=== PATIENT | male | born 1975 | race Two or more races ===

== ENCOUNTER 2016-07-25 06:19 | Emergency (ER) | payer OTHER ==
[~2016-07-25] VITALS: Ht 167.6 cm; Wt 97.5 kg
--- NOTE | 2016-07-25 06:33 | NUR ---
PT PRESENTED TO THE ER WITH A C/O MID TO RT SIDED CP THAT RADIATES TO THE BACK. PT STATED THAT THE PAIN WAS 5/10. PT AMBULATED TO ER #1 AND WAS CONNECTED TO THE MONITOR AND CONTINUOUS PULSE OX. RESP EVEN AND UNLABORED. DR. DEGROOT IS AT THE BEDSIDE EVALUATING THE PT.
[2016-07-25 07:04] LABS: BASOPHILS # (AUTO) 0.1 /CMM (0.0-0.2); BASOPHILS % (AUTO) 0.9 % (0.0-2.0); EOSINOPHILS # (AUTO) 0.6 /CMM (0.0-0.7); EOSINOPHILS % (AUTO) 9.7 % (0.0-6.0); HEMATOCRIT 41 % (39-51); HEMOGLOBIN 14.6 g/dL (13.5-17.5); LYMPHOCYTES # (AUTO) 3.1 /CMM (0.8-4.8); LYMPHOCYTES % (AUTO) 52.6 % (20.0-44.0); MEAN CORPUSCULAR HEMOGLOBIN 30 PG (26.0-33.0); MEAN CORPUSCULAR HGB CONC 36 g/dl (31.0-36.0); MEAN CORPUSCULAR VOLUME 85 fL (80-96); MONOCYTES # (AUTO) 0.6 /CMM (0.1-1.30); MONOCYTES % (AUTO) 9.7 % (2.0-12.0); NEUTROPHILS # (AUTO) 1.6 /CMM (1.8-8.9); NEUTROPHILS % (AUTO) 27.1 % (43.0-81.0); PLATELET COUNT (AUTO) 249 /CMM (150-450); RDW COEFFICIENT OF VARIATION 13.6 (11.5-15.0); RED BLOOD CELL COUNT(AUTO) 4.82 MIL/uL (4.5-6.0); WHITE BLOOD COUNT (AUTO) 5.9 K/uL (4.3-11.0)
--- NOTE | 2016-07-25 07:10 | NUR ---
CXR DONE AT THE BEDSIDE.
--- NOTE | 2016-07-25 07:13 | NUR ---
REPORT GIVEN TO MOJGAN MOLINA FOR ANTONETTE.
--- NOTE | 2016-07-25 07:15 | NUR ---
RECEIVED REPORT FROM JOSHUA
[2016-07-25 07:40] LABS: CALCIUM, SERUM 8.4 mg/dL (8.5-10.1); CARBON DIOXIDE 24 mmol/L (21-32); CHLORIDE 105 mmol/L (98-107); CREATININE 0.7 mg/dL (0.6-1.3); GFR 126 mL/min (>60); GLUCOSE 135 mg/dL (74-106); POTASSIUM 3.7 mmol/L (3.5-5.1); UREA NITROGEN, BLOOD 10 mg/dL (7-18)
[2016-07-25 07:49] LABS: TROPONIN I < 0.017 ng/mL (0.00-0.056)
[2016-07-25 07:50] LABS: SODIUM SERUM 142 mmol/L (136-145)
--- NOTE | 2016-07-25 08:13 | NUR ---
MD AT BEDSIDE PT CLEAR FOR DISCHARGE
[2016-07-25 08:14] VITALS: BP 147/79
--- NOTE | 2016-07-25 08:15 | NUR ---
IV removed. Catheter intact and site benign. Pressure and 4x4 applied to site. No bleeding noted.Patient discharged to home in stable condition. Written and verbal after care instructions given. Patient verbalizes understanding of instruction.
== END 2016-07-25 08:28 | disposition home or self-care (01) ==
LOC: ER 06:21
DX: R07.89 Other chest pain (principal); F10.99 Alcohol use, unspecified with unspecified alcohol-induced disorder; F41.9 Anxiety disorder, unspecified; Z88.6 Allergy status to analgesic agent
CPT/HCPCS: 36415; 71010; 80048; 84484; 85025; 93005; 99285; A4606; Z7610

== ENCOUNTER 2017-06-29 22:09 | Emergency (ER) | payer BC, OTHER ==
--- NOTE | 2017-06-29 22:53 | NUR ---
CALLED FOR TRIAGE; NOT IN LOBBY. WILL CALL BACK LATER
--- NOTE | 2017-06-29 23:11 | NUR ---
CALLED AGAIN; NO ANSWER
== END 2017-06-29 23:18 | disposition left against medical advice (07) ==
LOC: ER 22:13
DX: Z53.21 Procedure and treatment not carried out due to patient leaving prior to being seen by health care provider (principal)

== ENCOUNTER 2017-10-17 18:35 | Emergency (ER) | payer BC ==
[~2017-10-17] VITALS: Ht 165.1 cm; Wt 97.5 kg
[2017-10-17] MEDS ORDERED: MORPHINE SULFATE INJ 2 MG/ML DISP.SYRIN IV ONE (19:00)
[2017-10-17] MEDS ORDERED: ONDANSETRON HCL/PF 4 MG/2 ML VIAL IVP ONE (19:00)
[2017-10-17] MEDS ORDERED: IV NS 0.9% 1,000 ML BAG IV ONE (19:00)
[2017-10-17] MEDS ORDERED: MORPHINE SULFATE INJ 4 MG/ML DISP.SYRIN ONE (19:05)
[2017-10-17] MEDS ORDERED: ONDANSETRON HCL/PF 4 MG/2 ML VIAL ONE (19:05)
[2017-10-17 19:13] LABS: BASOPHILS # (AUTO) 0.1 /CMM (0.0-0.2); EOSINOPHILS % (AUTO) 6.3 % (0.0-6.0); HEMATOCRIT 45 % (39-51); HEMOGLOBIN 15.5 g/dL (13.5-17.5); LYMPHOCYTES # (AUTO) 2.9 /CMM (0.8-4.8); LYMPHOCYTES % (AUTO) 38.5 % (20.0-44.0); MEAN CORPUSCULAR HGB CONC 35 g/dl (31.0-36.0); MEAN CORPUSCULAR VOLUME 85 fL (80-96); MONOCYTES # (AUTO) 0.6 /CMM (0.1-1.30); MONOCYTES % (AUTO) 7.6 % (2.0-12.0); NEUTROPHILS # (AUTO) 3.4 /CMM (1.8-8.9); NEUTROPHILS % (AUTO) 46.6 % (43.0-81.0); PLATELET COUNT (AUTO) 239 /CMM (150-450); RDW COEFFICIENT OF VARIATION 12.2 (11.5-15.0); WHITE BLOOD COUNT (AUTO) 7.5 K/uL (4.3-11.0)
[2017-10-17 19:14] LABS: APPEARANCE,URINE Clear (CLEAR); BILIRUBIN,URINE Negative (NEGATIVE); BLOOD, URINE Negative Ery/uL (NEGATIVE); COLOR,URINE Yellow (YELLOW); KETONES,URINE Negative (NEGATIVE); LEUKOCYTE ESTERASE ,URINE Negative (NEGATIVE); NITRITE, URINE Negative (NEGATIVE); PROTEIN,URINE Negative (NEGATIVE); UGLUCOSE Negative (NEGATIVE); UROBILINOGEN,URINE 0.2 EU/dL (0.2)
--- NOTE | 2017-10-17 19:16 | NUR ---
PT TO ER BED PRIOR TO SHIFT CHANGE. C/O RUQ AND EPIGASTRIC PAIN RADIATING TO BACK X2 WKS, NAUSEA. PT AOX3 RR EVEN AND UNLABORED. NO SOB NOTED. NAD NOTED. NO NVD AT THIS TIME. PT GOWNED AND PLACED ON MONITOR. PT SEEN BY .
[2017-10-17 19:23] LABS: CARBON DIOXIDE 26 mmol/L (21-32); CHLORIDE 101 mmol/L (98-107); CREATININE 0.9 mg/dL (0.6-1.3); GLUCOSE 106 mg/dL (74-106); POTASSIUM 3.8 mmol/L (3.5-5.1); SODIUM SERUM 136 mmol/L (136-145); UREA NITROGEN, BLOOD 15 mg/dL (7-18)
[2017-10-17 19:26] LABS: INR 0.9 (0.85-1.15)
[2017-10-17 19:29] LABS: ALANINE AMINOTRANSFERASE 61 U/L (12-78); ALBUMIN 3.9 g/dL (3.4-5.0); ALKALINE PHOSPHATASE 90 U/L (46-116); ASPARTATE AMINOTRANSFERASE 36 U/L (15-37); BILIRUBIN,DIRECT 0.1 mg/dL (0.0-0.2); BILIRUBIN,TOTAL 0.7 mg/dL (0.2-1.0); LIPASE 147 U/L (73-393); TOTAL PROTEIN, SERUM 8.1 g/dL (6.4-8.2)
[2017-10-17 19:31] LABS: TROPONIN I < 0.017 ng/mL (0.00-0.056)
--- NOTE | 2017-10-17 19:44 | NUR ---
THOR AT BEDSIDE
[2017-10-17] MEDS ORDERED: LORAZEPAM INJ 2 MG/ML VIAL ONE (19:57)
[2017-10-17] MEDS ORDERED: LORAZEPAM INJ 2 MG/ML VIAL IV ONE (20:00)
--- NOTE | 2017-10-17 20:40 | NUR ---
IV removed. Catheter intact and site benign. Pressure and 4x4 applied to site. No bleeding noted. Patient discharged to home in stable condition. Written and verbal after care instructions given. Patient verbalizes understanding of instruction. ambulatory with a steady gait. instructed pt not drive. pt verbalize understanding.
[2017-10-17 20:42] VITALS: BP 152/93
== END 2017-10-17 20:43 | disposition home or self-care (01) ==
LOC: ER 18:37
DX: K29.70 Gastritis, unspecified, without bleeding (principal); F41.9 Anxiety disorder, unspecified; I10 Essential (primary) hypertension; F10.10 Alcohol abuse, uncomplicated; Z88.6 Allergy status to analgesic agent; Z98.890 Other specified postprocedural states
CPT/HCPCS: 36415; 71045; 76705; 80048; 80076; 80305; 81001; 83690; 84484; 85025; 85730; 93005; 96361; 96374; 96375; 99285; A4606; J2060; J2270; J2405; Z7610; 81000-TC

== ENCOUNTER 2018-02-11 10:04 | Emergency (ER) | payer BC ==
[~2018-02-11] VITALS: Ht 165.1 cm; Wt 102.5 kg
--- NOTE | 2018-02-11 10:10 | NUR ---
BIBRA SELF FROM HOME CC OF MIDSTERNAL CHEST PAIN RADIATES TO LEFT CHEST, ARM AND NECK X 2-3 DAYS 12/09 , ATTACHED TO MONITOR , VSS ,APLLIED 2LPM NC , WILL CONTINUE TO MONITOR
[2018-02-11 10:40] LABS: EOSINOPHILS % (AUTO) 14.7 % (0.0-6.0); HEMATOCRIT 44 % (39-51); HEMOGLOBIN 14.8 g/dL (13.5-17.5); LYMPHOCYTES # (AUTO) 2.4 /CMM (0.8-4.8); LYMPHOCYTES % (AUTO) 47.3 % (20.0-44.0); MEAN CORPUSCULAR HGB CONC 34 g/dl (31.0-36.0); MEAN CORPUSCULAR VOLUME 85 fL (80-96); MONOCYTES # (AUTO) 0.4 /CMM (0.1-1.30); MONOCYTES % (AUTO) 8.1 % (2.0-12.0); NEUTROPHILS # (AUTO) 1.4 /CMM (1.8-8.9); NEUTROPHILS % (AUTO) 28.9 % (43.0-81.0); PLATELET COUNT (AUTO) 257 /CMM (150-450); RDW COEFFICIENT OF VARIATION 12.2 (11.5-15.0); RED BLOOD CELL COUNT(AUTO) 5.13 MIL/uL (4.5-6.0); WHITE BLOOD COUNT (AUTO) 4.9 K/uL (4.3-11.0)
[2018-02-11 10:47] LABS: CALCIUM, SERUM 8.2 mg/dL (8.5-10.1); CARBON DIOXIDE 28 mmol/L (21-32); CHLORIDE 102 mmol/L (98-107); CREATININE 0.8 mg/dL (0.6-1.3); GLUCOSE 105 mg/dL (74-106); SODIUM SERUM 133 mmol/L (136-145); UREA NITROGEN, BLOOD 11 mg/dL (7-18)
[2018-02-11 10:53] LABS: ALANINE AMINOTRANSFERASE 44 U/L (12-78); ALBUMIN 3.7 g/dL (3.4-5.0); ALKALINE PHOSPHATASE 83 U/L (46-116); ASPARTATE AMINOTRANSFERASE 29 U/L (15-37); BILIRUBIN,DIRECT 0.2 mg/dL (0.0-0.2); BILIRUBIN,TOTAL 1.1 mg/dL (0.2-1.0); TOTAL PROTEIN, SERUM 7.4 g/dL (6.4-8.2)
[2018-02-11 10:55] LABS: TROPONIN I < 0.017 ng/mL (0.00-0.056)
[2018-02-11 11:07] LABS: D-DIMER 0.23 mg/L(FEU (0.17-0.50)
[2018-02-11 11:12] LABS: INR 0.96 (0.87-1.13)
[2018-02-11 11:20] VITALS: BP 135/84
== END 2018-02-11 11:20 | disposition home or self-care (01) ==
LOC: ER 10:07
DX: R07.89 Other chest pain (principal); F10.10 Alcohol abuse, uncomplicated; F41.9 Anxiety disorder, unspecified; I10 Essential (primary) hypertension; M54.9 Dorsalgia, unspecified; Y90.9 Presence of alcohol in blood, level not specified; Z98.890 Other specified postprocedural states; Z88.6 Allergy status to analgesic agent; Z88.5 Allergy status to narcotic agent
CPT/HCPCS: 36415; 71045; 80048; 80076; 84484; 85025; 85378; 85730; 93005; 99285; A4606; Z7610

== ENCOUNTER 2018-08-09 03:15 | Emergency (ER) | payer BC ==
[~2018-08-09] VITALS: Ht 165.1 cm; Wt 95.3 kg
[2018-08-09] MEDS ORDERED: ASPIRIN 325 MG TABLET PO ONE (03:30)
--- NOTE | 2018-08-09 03:30 | NUR ---
PT PRESENTED TO THE ER WITH A C/O MIDSTERNAL CHEST PAIN THAT RADIATES TO THE LT CHEST AND UP THE NECK TO THE LEFT JAW. PT STATED THAT IT WAS SHARP AND WOKE HIM UP. PT IS ON THE MONITOR AND CONTINUOUS PULSE OX. VSS.
--- NOTE | 2018-08-09 03:30 | NUR ---
PT STATED THAT HE TOOK A "FULL ASPIRIN", CARVEDOLOL 6.25MG, AND AMLODIPINE 10MG PRIOR TO ARRIVING. MD NOTIFIED.
--- NOTE | 2018-08-09 03:30 | NUR ---
EKG IS IN PROGRESS AT THE BEDSIDE.
--- NOTE | 2018-08-09 03:32 | NUR ---
DR. SAAB IS AT THE BEDSIDE.
[2018-08-09 03:50] LABS: BASOPHILS # (AUTO) 0.1 /CMM (0.0-0.2); BASOPHILS % (AUTO) 0.9 % (0.0-2.0); EOSINOPHILS % (AUTO) 10.8 % (0.0-6.0); HEMATOCRIT 43 % (39-51); LYMPHOCYTES # (AUTO) 3.5 /CMM (0.8-4.8); LYMPHOCYTES % (AUTO) 53.6 % (20.0-44.0); MEAN CORPUSCULAR HGB CONC 35 g/dl (31.0-36.0); MEAN CORPUSCULAR VOLUME 87 fL (80-96); MONOCYTES # (AUTO) 0.6 /CMM (0.1-1.30); MONOCYTES % (AUTO) 8.5 % (2.0-12.0); NEUTROPHILS # (AUTO) 1.7 /CMM (1.8-8.9); NEUTROPHILS % (AUTO) 26.2 % (43.0-81.0); PLATELET COUNT (AUTO) 217 /CMM (150-450); RED BLOOD CELL COUNT(AUTO) 4.96 MIL/uL (4.5-6.0); WHITE BLOOD COUNT (AUTO) 6.5 K/uL (4.3-11.0)
[2018-08-09 03:55] LABS: CALCIUM, SERUM 8.3 mg/dL (8.5-10.1); CARBON DIOXIDE 24 mmol/L (21-32); CHLORIDE 104 mmol/L (98-107); CREATININE 0.9 mg/dL (0.6-1.3); GLUCOSE 118 mg/dL (74-106); POTASSIUM 3.7 mmol/L (3.5-5.1); SODIUM SERUM 139 mmol/L (136-145); UREA NITROGEN, BLOOD 17 mg/dL (7-18)
[2018-08-09 04:01] LABS: ALANINE AMINOTRANSFERASE 70 U/L (12-78); ALBUMIN 4.1 g/dL (3.4-5.0); ALKALINE PHOSPHATASE 138 U/L (46-116); BILIRUBIN,DIRECT 0.1 mg/dL (0.0-0.2); BILIRUBIN,TOTAL 0.4 mg/dL (0.2-1.0); TOTAL PROTEIN, SERUM 7.8 g/dL (6.4-8.2)
[2018-08-09 04:09] LABS: D-DIMER 0.19 mg/L(FEU (0.17-0.50)
[2018-08-09 04:23] LABS: ASPARTATE AMINOTRANSFERASE 30 U/L (15-37)
--- NOTE | 2018-08-09 04:46 | NUR ---
Patient discharged to home in stable condition. Written and verbal after care instructions given. Patient verbalizes understanding of instruction.IV removed. Catheter intact and site benign. Pressure and 4x4 applied to site. No bleeding noted.
[2018-08-09 04:48] VITALS: BP 147/80
== END 2018-08-09 04:49 | disposition home or self-care (01) ==
LOC: ER 03:17
DX: R07.89 Other chest pain (principal); I10 Essential (primary) hypertension; M54.9 Dorsalgia, unspecified; F41.9 Anxiety disorder, unspecified; I44.4 Left anterior fascicular block; F10.10 Alcohol abuse, uncomplicated; Y90.0 Blood alcohol level of less than 20 mg/100 ml; Z98.890 Other specified postprocedural states; Z88.5 Allergy status to narcotic agent; Z88.6 Allergy status to analgesic agent
CPT/HCPCS: 36415; 71045-TC; 80048-TC; 80076-TC; 84484-TC; 85025-TC; 85378-TC; 85730-TC; G0480

== ENCOUNTER 2020-12-15 04:56 | Emergency (ER) | payer BC ==
[~2020-12-15] VITALS: Ht 167.6 cm; Wt 104.3 kg
--- NOTE | 2020-12-15 05:03 | NUR ---
Patient came to the ER bed 10 BIB self c/o left sided chest pain radiating to the back since 7X hr ago. Patient is alert and oriented X4. Patient is breathing evenly and unlabored on room air. connected to the monitor.
--- NOTE | 2020-12-15 05:09 | NUR ---
blood collected and sent to the lab.
[2020-12-15 05:45] LABS: CALCIUM, SERUM 7.8 mg/dL (8.5-10.1); CARBON DIOXIDE 25 mmol/L (21-32); CHLORIDE 106 mmol/L (98-107); CREATININE 0.7 mg/dL (0.6-1.3); GLUCOSE 125 mg/dL (74-106); POTASSIUM 3.9 mmol/L (3.5-5.1); SODIUM SERUM 142 mmol/L (136-145); UREA NITROGEN, BLOOD 10 mg/dL (7-18)
[2020-12-15 06:28] LABS: BASOPHILS # (AUTO) 0.1 K/uL (0.0-0.2); BASOPHILS % (AUTO) 1.4 % (0.0-2.0); EOSINOPHILS % (AUTO) 8.5 % (0.0-6.0); HEMATOCRIT 46 % (39-51); HEMOGLOBIN 15.9 g/dL (13.5-17.5); LYMPHOCYTES # (AUTO) 4.2 K/uL (0.8-4.8); LYMPHOCYTES % (AUTO) 52.4 % (20.0-44.0); MEAN CORPUSCULAR HGB CONC 35 g/dl (31.0-36.0); MEAN CORPUSCULAR VOLUME 88 fL (80-96); MONOCYTES # (AUTO) 0.7 K/uL (0.1-1.30); MONOCYTES % (AUTO) 8.1 % (2.0-12.0); NEUTROPHILS # (AUTO) 2.4 K/uL (1.8-8.9); NEUTROPHILS % (AUTO) 29.6 % (43.0-81.0); PLATELET COUNT (AUTO) 265 K/uL (150-450); RED BLOOD CELL COUNT(AUTO) 5.21 MIL/uL (4.5-6.0); WHITE BLOOD COUNT (AUTO) 8.1 K/uL (4.3-11.0)
[2020-12-15] MEDS ORDERED: METOPROLOL TARTRATE INJ 5 MG/5 ML AMPUL IV ONE (06:30)
[2020-12-15] MEDS ORDERED: LORAZEPAM INJ 2 MG/ML VIAL IV ONE (06:30)
[2020-12-15] MEDS ORDERED: LORAZEPAM INJ 2 MG/ML VIAL ONE (06:35)
[2020-12-15] MEDS ORDERED: METOPROLOL TARTRATE INJ 5 MG/5 ML AMPUL ONE (06:35)
[2020-12-15] MEDS ORDERED: METO-357 PO (07:03)
--- NOTE | 2020-12-15 07:05 | NUR ---
CALLED PHARMACY FOR MEDICATION TOPROLOL XL
--- NOTE | 2020-12-15 07:27 | NUR ---
Patient discharged to home in stable condition. Written and verbal after care instructions given. Patient verbalizes understanding of instruction.
--- NOTE | 2020-12-15 07:27 | NUR ---
IV removed. Catheter intact and site benign. Pressure and 4x4 applied to site. No bleeding noted.
[2020-12-15 07:28] VITALS: BP 124/79
[2020-12-15] MEDS ORDERED: METOPROLOL SUCCINATE 50 MG TAB.SR.24H PO SCH (07:30)
[2020-12-15 07:55] LABS: THYROID STIMULATING HORMONE 2.104 uIU/mL (0.358-3.74)
== END 2020-12-15 07:28 | disposition home or self-care (01) ==
LOC: ER 04:56
DX: R00.2 Palpitations (principal); R07.89 Other chest pain; I10 Essential (primary) hypertension; F41.9 Anxiety disorder, unspecified; Z98.890 Other specified postprocedural states; Z88.6 Allergy status to analgesic agent; Z79.899 Other long term (current) drug therapy; R00.0 Tachycardia, unspecified; R94.31 Abnormal electrocardiogram [ECG] [EKG]
CPT/HCPCS: 36415; 71045; 80048; 84439; 84443; 84484; 85025; 93005 ×2; 96374; 96375; 99291; J2060; J3490

== ENCOUNTER 2021-11-11 08:26 | Emergency (ER) | payer BC ==
[~2021-11-11] VITALS: Ht 167.6 cm; Wt 111.1 kg
[~2021-11-11 08:26] MED LIST: METO-357 PO
--- NOTE | 2021-11-11 08:28 | NUR ---
BIBFAM C/O L SIDED CHEST PAIN, SHARP, R/T BACK x 1WK ON&OFF, ALSO C/O SOB. +NAUSEA, "BEEN DRINKING x1WK, FRIEND ", ALSO C/O ABDOMINAL PAIN. 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 CHANGED TO HOSP GOWN, WARM BLANKET PROVIDED. PATIENT AAO x 4. AWAITING MD BENÍTEZ
--- NOTE | 2021-11-11 08:35 | NUR ---
DIRECTOR SPECIAL EDUCATION AT BEDSIDE
--- NOTE | 2021-11-11 08:39 | NUR ---
IV ESTABLISHED R AC 18G. LABS DRAWN AND SENT.
--- NOTE | 2021-11-11 08:42 | NUR ---
DR PADGETT AT BEDSIDE
[2021-11-11] MEDS ORDERED: ONDANSETRON HCL/PF 4 MG/2 ML VIAL ONE (08:53)
[2021-11-11] MEDS ORDERED: PANTOPRAZOLE 40 MG VIAL ONE (08:53)
[2021-11-11] MEDS ORDERED: ONDANSETRON HCL/PF 4 MG/2 ML VIAL IVP ONE (09:00)
[2021-11-11] MEDS ORDERED: PANTOPRAZOLE 40 MG VIAL IV ONE (09:00)
[2021-11-11] MEDS ORDERED: IV NS 0.9% 1,000 ML BAG IV ONE (09:00)
[2021-11-11 09:18] LABS: BASOPHILS # (AUTO) 0.1 K/uL (0.0-0.2); EOSINOPHILS % (AUTO) 1.6 % (0.0-6.0); HEMATOCRIT 41 % (39-51); HEMOGLOBIN 14.1 g/dL (13.5-17.5); LYMPHOCYTES # (AUTO) 2.6 K/uL (0.8-4.8); LYMPHOCYTES % (AUTO) 22.8 % (20.0-44.0); MEAN CORPUSCULAR HGB CONC 34 g/dl (31.0-36.0); MEAN CORPUSCULAR VOLUME 92 fL (80-96); MONOCYTES # (AUTO) 0.7 K/uL (0.1-1.30); MONOCYTES % (AUTO) 6.3 % (2.0-12.0); NEUTROPHILS # (AUTO) 7.9 K/uL (1.8-8.9); NEUTROPHILS % (AUTO) 68.3 % (43.0-81.0); PLATELET COUNT (AUTO) 166 K/uL (150-450); RED BLOOD CELL COUNT(AUTO) 4.52 MIL/uL (4.5-6.0); WHITE BLOOD COUNT (AUTO) 11.6 K/uL (4.3-11.0)
[2021-11-11 09:28] LABS: ALANINE AMINOTRANSFERASE 99 U/L (12-78); ALBUMIN 2.9 g/dL (3.4-5.0); ALCOHOL, BLOOD 196 mg/dL (0-0); ALKALINE PHOSPHATASE 167 U/L (46-116); ASPARTATE AMINOTRANSFERASE 232 U/L (15-37); BILIRUBIN,DIRECT 0.5 mg/dL (0.0-0.2); BILIRUBIN,TOTAL 1.2 mg/dL (0.2-1.0); CALCIUM, SERUM 7.7 mg/dL (8.5-10.1); CARBON DIOXIDE 29 mmol/L (21-32); CREATININE 0.8 mg/dL (0.6-1.3); GLUCOSE 177 mg/dL (74-106); LIPASE 146 U/L (73-393); TOTAL PROTEIN, SERUM 8.8 g/dL (6.4-8.2); UREA NITROGEN, BLOOD 6 mg/dL (7-18)
[2021-11-11] MEDS ORDERED: LORAZEPAM 1 MG TABLET ONE (09:30)
[2021-11-11] MEDS ORDERED: LORAZEPAM 1 MG TABLET PO ONE (09:30)
[2021-11-11 09:41] LABS: CHLORIDE 99 mmol/L (98-107); POTASSIUM 3.2 mmol/L (3.5-5.1); SODIUM SERUM 136 mmol/L (136-145)
[2021-11-11] MEDS ORDERED: ALBU18HF2 IH (09:59)
[2021-11-11] MEDS ORDERED: DIGO250T PO (09:59)
[2021-11-11] MEDS ORDERED: AMLO-213 PO (09:59)
[2021-11-11] MEDS ORDERED: APIX5TAB PO (09:59)
[2021-11-11] MEDS ORDERED: ATOR10TA PO (09:59)
[2021-11-11] MEDS ORDERED: CARV6.252 PO (09:59)
[2021-11-11] MEDS ORDERED: ALPR0.5T8 PO (09:59)
[2021-11-11] MEDS ORDERED: CHLORDIAZEPOXIDE HCL 25 MG CAPSULE ONE (10:28)
[2021-11-11] MEDS ORDERED: CHLORDIAZEPOXIDE HCL 25 MG CAPSULE PO ONE (10:30)
[2021-11-11] MEDS ORDERED: POTASSIUM CHLORIDE 20 MEQ TAB.PRT.SR PO ONE ×2 (11:26→11:30)
[2021-11-11] MEDS ORDERED: CHLO25CA22 PO (11:44)
--- NOTE | 2021-11-11 11:50 | NUR ---
IV removed. Catheter intact and site benign. Pressure and 4x4 applied to site. No bleeding noted.
--- NOTE | 2021-11-11 11:51 | NUR ---
Patient discharged to home in stable condition. Written and verbal after care instructions given. Patient verbalizes understanding of instruction.
[2021-11-11 11:52] VITALS: BP 148/70
== END 2021-11-11 11:52 | disposition home or self-care (01) ==
LOC: ER 08:30
DX: R07.89 Other chest pain (principal); F41.9 Anxiety disorder, unspecified; K70.10 Alcoholic hepatitis without ascites; F10.10 Alcohol abuse, uncomplicated; E87.6 Hypokalemia; I10 Essential (primary) hypertension; Z98.890 Other specified postprocedural states; Z88.6 Allergy status to analgesic agent; Z79.899 Other long term (current) drug therapy; Y90.9 Presence of alcohol in blood, level not specified
CPT/HCPCS: 99285; 96374; 96361; 96375; 93005 ×2; 71045; 85025; 80048; 83690; 80076; 36415; 84484 ×2; 80320; J2405; J7030; C9113; G0480